=== PATIENT | male | born 1980 | race Hispanic/Latino ===

== ENCOUNTER 2023-01-29 22:41 | Emergency (ER) | payer BC, SELFPAY ==
[2023-01-29 23:32] LABS: #Eosinphils 0.1 thou/uL (0.0-0.7); #Monocytes 0.5 thou/uL (0.11-0.59); #Neutrophils 3.5 thou/uL (1.40-6.50); %Basophils 0.3 % (0.0-1.0); %Eosinophils 1.3 % (0.0-10.0); %Lymphocytes 34.9 % (21.0-51.0); %Monocytes 8.3 % (0.0-10.0); %Neutrophils 54.9 % (42.0-75.0); Hemoglobin 15.8 g/dL (14.0-18.0); Mean Corpuscular HGB CONC 35.1 g/dL (32.0-36.0); Mean Corpuscular Hemoglobin 33.5 pg (27.0-31.0); Mean Corpuscular Volume 95.5 fl (78.0-98.0); Mean Platelet Volume 10.6 fL (7.4-10.4); Platelet Count 94 10x3/uL (130-400); RBC Distribution Width 13.9 % (11.5-14.5); Red Blood Cell (RBC) Count 4.71 mill/uL (4.70-6.10); White Blood Cell (WBC) Count 6.4 10x3/uL (4.8-10.8)
[2023-01-29 23:57] LABS: Troponin I Less than 0.010 ng/mL (< 0.028)
[2023-01-30] LABS: ALT (SGPT) 63 U/L (8-55); AST (SGOT) 70 U/L (5-34); Alkaline Phosphatase 106 U/L (40-110); Anion Gap 16 mmol/L (10-20); BUN (Urea Nitrogen) 5 mg/dL (8.9-20.6); Calc. Creatinine Clearance 0 mL/min (70-130); Calcium 8.7 mg/dL (7.8-10.44); Carbon Dioxide 22 mmol/L (22-29); Chloride 102 mmol/L (98-107); Estimated GFR 115; Globulin 4.6 g/dL (2.4-3.5); Glucose 154 mg/dL (70-105); Potassium 3.3 mmol/L (3.5-5.1); Protein, Total 8.6 g/dL (6.0-8.3); Sodium 137 mmol/L (136-145)
[2023-01-30 00:29] LABS: INR-International Normal Ratio 1.3; PTT 31.3 sec (22.9-36.1); Prothrombin Time 16.4 sec (12.0-14.7)
[2023-01-30] MEDS ORDERED: Ketorolac Tromethamine 30 MG/ML VIAL ONE (02:52)
[2023-01-30] MEDS ORDERED: Potassium Chloride 20 MEQ TAB ONE (02:52)
== END 2023-01-30 05:10 | disposition home or self-care (01) ==
LOC: ERS 22:41
DX: R06.02 Shortness of breath (principal); R53.83 Other fatigue; M79.10 Myalgia, unspecified site
CPT/HCPCS: 71045; 71275; 74177; 80053; 83690; 84484; 85025; 85610; 85730; 93005; 96361; 96374; J1885

== ENCOUNTER 2024-02-19 10:10 | Inpatient (IN) | payer BC, SELFPAY ==
[2024-02-19] MEDS ORDERED: Ondansetron PF 4 MG/2 ML Vial ONE ×3 (10:33→15:20)
[2024-02-19] MEDS ORDERED: Pantoprazole 40 MG VIAL ONE (10:33)
[2024-02-19] MEDS ORDERED: Famotidine/PF 20 mg/2ml Vial ONE (10:33)
[2024-02-19 10:51] LABS: #Basophils Less than 0.03 10x3/uL (0.0-0.2); %Basophils 0.4 % (0.0-1.0); %Eosinophils 0.6 % (0.0-10.0); %Lymphocytes 22.3 % (21.0-51.0); %Neutrophils 68.3 % (42.0-75.0); Hematocrit 43.6 % (42.0-52.0); Hemoglobin 14.9 g/dL (14.0-18.0); Mean Corpuscular HGB CONC 34.2 g/dL (32.0-36.0); Mean Corpuscular Hemoglobin 33.7 pg (27.0-31.0); Mean Corpuscular Volume 98.6 fL (78.0-98.0); Mean Platelet Volume 10.6 fL (7.4-10.4); Platelet Count 69 10x3/uL (130-400); Red Blood Cell (RBC) Count 4.42 mill/uL (4.70-6.10)
[2024-02-19] MEDS ORDERED: Sodium Chloride 0.9% 100 ML ONE (11:01)
[2024-02-19] MEDS ORDERED: Lorazepam 2 MG/ML VIAL ONE ×2 (11:01→13:11)
[2024-02-19] MEDS ORDERED: cefTRIAXone (ROCEPHIN) 1 GM VIAL ONE (11:01)
[2024-02-19 11:11] LABS: ALT (SGPT) 68 U/L (8-55); AST (SGOT) 183 U/L (5-34); Albumin 3.2 g/dL (3.5-5.0); Alkaline Phosphatase 147 U/L (40-110); Anion Gap 14 mmol/L (10-20); BUN (Urea Nitrogen) 4 mg/dL (8.9-20.6); Bilirubin, Total 2.8 mg/dL (0.2-1.2); Calc. Creatinine Clearance 0 mL/min (70-130); Calcium 8.6 mg/dL (7.8-10.44); Carbon Dioxide 25 mmol/L (22-29); Chloride 103 mmol/L (98-107); Estimated GFR 112; Globulin 5.7 g/dL (2.4-3.5); Glucose 128 mg/dL (70-105); Lipase 43 U/L (8-78); Magnesium 1.6 mg/dL (1.6-2.6); Potassium 3.9 mmol/L (3.5-5.1); Protein, Total 8.9 g/dL (6.0-8.3); Sodium 138 mmol/L (136-145)
[2024-02-19] MEDS ORDERED: Octreotide Acetate 1,250 MCG in Sodium Chloride 0.9% 250 ML 250 ML IVPB SCH ×2 (11:15→12:45)
[2024-02-19 11:24] LABS: INR-International Normal Ratio 1.5; PTT 37.5 sec (22.9-36.1); Prothrombin Time 18.3 sec (12.0-14.7)
[2024-02-19 11:41] LABS: Troponin I 0.011 ng/mL (< 0.028)
[2024-02-19] MEDS ORDERED: Ondansetron PF 4 MG/2 ML Vial IVP PRN (12:32)
[2024-02-19] MEDS ORDERED: Lorazepam 1 MG TAB PO PRN (12:36)
[2024-02-19] MEDS ORDERED: Electrolyte Replacement Protocol 1 EACH FS SCH (12:45)
[2024-02-19] MEDS ORDERED: Electrolyte Replacement Protocol FS PRN (13:00)
[2024-02-19 13:31] LABS: Hemoglobin 14.2 g/dL (14.0-18.0); Mean Corpuscular HGB CONC 33.8 g/dL (32.0-36.0); Mean Corpuscular Hemoglobin 33.7 pg (27.0-31.0); Mean Corpuscular Volume 99.8 fL (78.0-98.0); Mean Platelet Volume 10.6 fL (7.4-10.4); Platelet Count 63 10x3/uL (130-400); Red Blood Cell (RBC) Count 4.21 mill/uL (4.70-6.10)
[2024-02-19 13:43] LABS: Troponin I Less than 0.010 ng/mL (< 0.028)
[2024-02-19] MEDS ORDERED: PROPOFOL 20 ML ONE (14:40)
[2024-02-19] MEDS ORDERED: SUGAMMADEX SODIUM 200 MG/2 ML VIAL ONE (14:40)
[2024-02-19] MEDS ORDERED: Midazolam HCl 2 mg/2 ml Vial ONE (14:40)
[2024-02-19] MEDS ORDERED: Magnesium 2 GM/50 ML BAG (IN WATER) ONE (14:40)
[2024-02-19] MEDS ORDERED: Lidocaine 1% PF 5 ML VIAL ONE ×2 (14:40)
[2024-02-19] MEDS ORDERED: SUCCINYLCHOLINE/SOD CL,ISO/PF 200 MG/10 ML SYRINGE FS ONE (14:57)
[2024-02-19] MEDS ORDERED: PHENYLEPHRINE-NS 100 MCG/ML 10 ML SYRINGE ONE (15:04)
[2024-02-19] MEDS ORDERED: Ondansetron HCl/PF 4 MG/2 ML Vial IVP PRN (15:50)
[2024-02-19] MEDS ORDERED: Promethazine HCl 25 MG/ML VIAL IM PRN (15:50)
[2024-02-19] MEDS: Lorazepam 1 MG TAB PO SCH (17:10)
[2024-02-19] MEDS: Sodium Chloride 0.9% 1,000 ML IV SCH (17:10)
[2024-02-19 17:15] VITALS: BMI 29.9
[2024-02-19] MEDS: Folic Acid 1 MG TAB PO SCH ×2 (18:08→18:09)
[2024-02-19] MEDS: Multivit, Therapeutic 1 TAB PO SCH ×2 (18:08→18:09)
[2024-02-19] MEDS: Magnesium 2 GM/50 ML(in water) 2 GM in Premix 1 BAG IVPB SCH ×2 (18:09)
[2024-02-19 18:29] LABS: Troponin I Less than 0.010 ng/mL (< 0.028)
[2024-02-19 18:33] LABS: Amphetamine Not Detected (NotDetected); Barbiturates Screen Not Detected (NotDetected); Benzodiazepine Screen Detected (NotDetected); Cocaine Metabolite Screen Not Detected (NotDetected); Methadone Not Detected (NotDetected); Methamphetamine Not Detected (NotDetected); Opiate Screen Not Detected (NotDetected); Oxycodone Screen Not Detected (NotDetected); Phencyclidine (PCP) Not Detected (NotDetected); THC/Cannabinoid Screen Not Detected (NotDetected); Tricyclic Screen Not Detected (NotDetected)
[2024-02-19 18:33] LABS: Hematocrit 38.6 % (42.0-52.0); Hemoglobin 12.8 g/dL (14.0-18.0); Mean Corpuscular HGB CONC 33.2 g/dL (32.0-36.0); Mean Corpuscular Hemoglobin 33.7 pg (27.0-31.0); Mean Corpuscular Volume 101.6 fL (78.0-98.0); Platelet Count 59 10x3/uL (130-400); RBC Distribution Width 15.2 % (11.5-14.5)
[2024-02-19] MEDS: Pantoprazole 80 MG, Admixture Fee 1 EACH in Sodium Chloride 0.9% 100 ML IVPB SCH (22:34)
[2024-02-20 04:13] LABS: #Basophils 0.03 10x3/uL (0.0-0.2); %Basophils 0.5 % (0.0-1.0); %Eosinophils 1.4 % (0.0-10.0); %Monocytes 10.8 % (0.0-10.0); %Neutrophils 63.1 % (42.0-75.0); Hematocrit 38.7 % (42.0-52.0); Mean Corpuscular HGB CONC 33.6 g/dL (32.0-36.0); Mean Corpuscular Volume 101.3 fL (78.0-98.0); Mean Platelet Volume 11.5 fL (7.4-10.4); Platelet Count 61 10x3/uL (130-400); RBC Distribution Width 15.1 % (11.5-14.5); Red Blood Cell (RBC) Count 3.82 mill/uL (4.70-6.10)
[2024-02-20 04:20] LABS: ALT (SGPT) 52 U/L (8-55); AST (SGOT) 132 U/L (5-34); Albumin 2.8 g/dL (3.5-5.0); Alkaline Phosphatase 122 U/L (40-110); Anion Gap 12 mmol/L (10-20); BUN (Urea Nitrogen) 6 mg/dL (8.9-20.6); Bilirubin, Total 3.4 mg/dL (0.2-1.2); Calc. Creatinine Clearance 206 mL/min (70-130); Calcium 8.1 mg/dL (7.8-10.44); Carbon Dioxide 22 mmol/L (22-29); Chloride 105 mmol/L (98-107); Estimated GFR 120; Globulin 4.9 g/dL (2.4-3.5); Glucose 107 mg/dL (70-105); Immunoglob - G (Total IgG) 2728 mg/dL (540-1822); Immunoglob - M (Total IgM) 274 mg/dL (22-240); Iron 205 ug/dL (65-175); Iron Binding Capacity, Total 198 mcg/dL (261-462); Magnesium 1.8 mg/dL (1.6-2.6); Potassium 3.6 mmol/L (3.5-5.1); Protein, Total 7.7 g/dL (6.0-8.3); Sodium 135 mmol/L (136-145)
[2024-02-20 04:22] LABS: INR-International Normal Ratio 1.6; Prothrombin Time 19.5 sec (12.0-14.7)
[2024-02-20 04:23] LABS: PTT 38.7 sec (22.9-36.1)
[2024-02-20 04:42] LABS: HBsAg Index 0.21 S/CO (0-0.99); Hep A IgM AB NONREACTIVE (NonReactive); Hep A IgM S/CO 0.19 S/CO (0-0.79); Hep B Core IgM Index 0.12 S/CO (0-0.79); Hep B Surf Ag NONREACTIVE S/CO (NonReactive); Hep C IgG Ab NONREACTIVE S/CO (NonReactive); Hep C Index 0.14 S/CO (0-0.79); Hepatitis B Core IgM Abs NONREACTIVE S/CO (NonReactive)
[2024-02-20 04:43] LABS: Ferritin 251.36 ng/mL (22-322)
[2024-02-20] MEDS: Magnesium 2 GM/50 ML(in water) 2 GM in Premix 1 BAG IVPB SCH (09:00)
[2024-02-20] MEDS: Multivit, Therapeutic 1 TAB PO SCH (09:00)
[2024-02-20] MEDS: Folic Acid 1 MG TAB PO SCH (09:00)
[2024-02-20] MEDS: cefTRIAXone\\ROCEPHIN 1 GM in Sodium Chloride 0.9% 100 ML IVPB SCH (11:00)
[2024-02-20] MEDS ORDERED: Lorazepam 1 MG TAB PO PRN (12:36)
[2024-02-20] MEDS: Acetaminophen 325 MG TAB PO PRN (17:10)
[2024-02-21 04:42] LABS: #Basophils Less than 0.03 10x3/uL (0.0-0.2); %Basophils 0.3 % (0.0-1.0); %Eosinophils 2.1 % (0.0-10.0); %Lymphocytes 21.4 % (21.0-51.0); %Monocytes 10.2 % (0.0-10.0); %Neutrophils 65.8 % (42.0-75.0); Hematocrit 39.2 % (42.0-52.0); Hemoglobin 13.3 g/dL (14.0-18.0); Mean Corpuscular HGB CONC 33.9 g/dL (32.0-36.0); Mean Corpuscular Hemoglobin 33.7 pg (27.0-31.0); Mean Corpuscular Volume 99.2 fL (78.0-98.0); Mean Platelet Volume 10.9 fL (7.4-10.4); Platelet Count 61 10x3/uL (130-400); RBC Distribution Width 14.6 % (11.5-14.5); Red Blood Cell (RBC) Count 3.95 mill/uL (4.70-6.10)
[2024-02-21 04:50] LABS: INR-International Normal Ratio 1.6; PTT 37.5 sec (22.9-36.1)
[2024-02-21 04:56] LABS: ALT (SGPT) 44 U/L (8-55); AST (SGOT) 110 U/L (5-34); Albumin 2.8 g/dL (3.5-5.0); Alkaline Phosphatase 129 U/L (40-110); Anion Gap 11 mmol/L (10-20); BUN (Urea Nitrogen) 6 mg/dL (8.9-20.6); Bilirubin, Total 3.3 mg/dL (0.2-1.2); Calc. Creatinine Clearance 199 mL/min (70-130); Calcium 8.1 mg/dL (7.8-10.44); Carbon Dioxide 22 mmol/L (22-29); Chloride 105 mmol/L (98-107); Estimated GFR 120; Globulin 4.8 g/dL (2.4-3.5); Glucose 107 mg/dL (70-105); Magnesium 1.9 mg/dL (1.6-2.6); Potassium 3.3 mmol/L (3.5-5.1); Protein, Total 7.6 g/dL (6.0-8.3); Sodium 135 mmol/L (136-145)
[2024-02-21] MEDS ORDERED: Magnevist 469MG/ML 20 ML VIAL ONE (11:37)
[2024-02-21] MEDS: Potassium Chloride 20 MEQ TAB PO SCH (11:47)
[2024-02-21] MEDS: Lorazepam 0.5 MG TAB PO SCH (11:47)
[2024-02-21] MEDS: Magnesium 2 GM/50 ML(in water) 2 GM in Premix 1 BAG IVPB SCH (11:48)
[2024-02-21] MEDS ORDERED: Lorazepam 1 MG TAB PO PRN (12:36)
[2024-02-21 13:09] VITALS: BMI 29.4
[2024-02-21] MEDS: Pantoprazole DR 40 MG TAB PO SCH (20:42)
[2024-02-22 04:45] LABS: #Basophils 0.03 10x3/uL (0.0-0.2); %Basophils 0.4 % (0.0-1.0); %Eosinophils 2.2 % (0.0-10.0); %Lymphocytes 24.4 % (21.0-51.0); %Monocytes 8.9 % (0.0-10.0); %Neutrophils 63.7 % (42.0-75.0); Hematocrit 39.8 % (42.0-52.0); Hemoglobin 13.8 g/dL (14.0-18.0); Mean Corpuscular HGB CONC 34.7 g/dL (32.0-36.0); Mean Corpuscular Hemoglobin 34.2 pg (27.0-31.0); Mean Corpuscular Volume 98.8 fL (78.0-98.0); Mean Platelet Volume 11.4 fL (7.4-10.4); Platelet Count 69 10x3/uL (130-400); RBC Distribution Width 14.7 % (11.5-14.5); Red Blood Cell (RBC) Count 4.03 mill/uL (4.70-6.10)
[2024-02-22 04:48] LABS: INR-International Normal Ratio 1.6; PTT 35.8 sec (22.9-36.1); Prothrombin Time 18.7 sec (12.0-14.7)
[2024-02-22 04:57] LABS: ALT (SGPT) 44 U/L (8-55); AST (SGOT) 95 U/L (5-34); Albumin 2.8 g/dL (3.5-5.0); Alkaline Phosphatase 123 U/L (40-110); Anion Gap 10 mmol/L (10-20); BUN (Urea Nitrogen) 8 mg/dL (8.9-20.6); Bilirubin, Total 3.4 mg/dL (0.2-1.2); Calc. Creatinine Clearance 215 mL/min (70-130); Calcium 8.6 mg/dL (7.8-10.44); Carbon Dioxide 22 mmol/L (22-29); Chloride 106 mmol/L (98-107); Estimated GFR 123; Globulin 5.3 g/dL (2.4-3.5); Glucose 94 mg/dL (70-105); Magnesium 1.8 mg/dL (1.6-2.6); Potassium 3.6 mmol/L (3.5-5.1); Protein, Total 8.1 g/dL (6.0-8.3); Sodium 134 mmol/L (136-145)
[2024-02-22] MEDS: Magnesium 2 GM/50 ML(in water) 2 GM in Premix 1 BAG IVPB SCH (08:56)
[2024-02-22] MEDS: Potassium Chloride 20 MEQ TAB PO SCH (08:57)
[2024-02-22] MEDS ORDERED: Lorazepam 0.5 MG TAB PO PRN (12:36)
[2024-02-22] MEDS: Thiamine 100 MG TAB PO SCH (13:30)
[2024-02-22 17:00] VITALS: BP 142/78; TEMP 97.8
[2024-02-22] MEDS ORDERED: FLU (Fluarix Triv) TS24-25(6MOS UP)/PF 45 MCG/0.5 ML Syringe IM ONE (18:15)
[2024-02-23 15:05] LABS: ANA Symphony (Qualitative) Negative (Negative); ANA Symphony (Quantitative) 0.5 Ratio (< 0.7 Negative); EliA Vaculitis New Method **** NEW METHOD ****
== END 2024-02-22 17:59 | disposition home or self-care (01) | DRG 381 ==
LOC: ERS 10:10 → SUATTDRO 10:10 → IMCU/EMU 12:36 → MSONC 02-21 08:25
PROVIDERS: ADMIT Family Medicine; ATTEND Internal Medicine
PROC: 0DJ08ZZ Inspection of Upper Intestinal Tract, Via Natural or Artificial Opening Endoscopic (ICD-10-PCS; principal; 2024-02-19)
PROC: 0DC68ZZ Extirpation of Matter from Stomach, Via Natural or Artificial Opening Endoscopic (ICD-10-PCS; 2024-02-19)
DX: K22.11 Ulcer of esophagus with bleeding (principal); I85.10 Secondary esophageal varices without bleeding; K76.6 Portal hypertension; K22.6 Gastro-esophageal laceration-hemorrhage syndrome; K29.71 Gastritis, unspecified, with bleeding; K31.89 Other diseases of stomach and duodenum; Z90.49 Acquired absence of other specified parts of digestive tract; F41.9 Anxiety disorder, unspecified; D69.6 Thrombocytopenia, unspecified; F10.10 Alcohol abuse, uncomplicated; Z79.899 Other long term (current) drug therapy; K70.30 Alcoholic cirrhosis of liver without ascites
CPT/HCPCS: 36415; 71045; 74183; 76705; 80053; 80074; 80306; 82105; 82274; 82728; 83516; 83540; 83550; 83690; 83735; 84484; 85025; 85610; 85730; 86015; 86038; 86225; 86850; 86900; 86901; 93005; 93306; 94760; 96374; 96375; 96376; J0696; J2060; J2250; J2354; J2405; J2470; J2704; J3475; J3490; J7030; J7050